=== PATIENT | male | born 1995 | race Caucasian/White ===

== ENCOUNTER 2024-12-24 18:30 | Emergency (ER) | payer SELFPAY ==
[~2024-12-24] VITALS: Ht 182.9 cm; Wt 93.0 kg
[2024-12-24 18:42] VITALS: TEMP 36.8; O2SAT 100
[2024-12-24 22:20] LABS: BASOPHILS % 0.6 % (0.0-2.0); EOSINOPHILS % 1.3 % (0.0-5.0); HEMATOCRIT. 42.2 % (42.0-52.0); HEMOGLOBIN. 14.2 g/dL (14.0-18.0); LYMPHOCYTES % 25.8 % (20.0-50.0); MEAN CORPUSCULAR HEMOGLOBIN 28.6 pg (28.0-32.0); MEAN CORPUSCULAR HGB CONC 33.7 g/dL (31.0-37.0); MEAN CORPUSCULAR VOLUME 84.9 fL (80.0-94.0); MEAN PLATELET VOLUME 7.8 fl (7.4-10.4); MONOCYTES % 5.7 % (2.0-8.0); NEUTROPHILS % 66.6 % (40.0-76.0); PLATELET 363 x1000/uL (130-400); RED BLOOD CELL COUNT 4.97 mill/uL (4.7-6.1); RED CELL DISTRIBUTION WIDTH 14.1 % (11.6-14.6); WHITE BLOOD COUNT 12.5 x1000/uL (4.5-11.0)
[2024-12-24 22:27] LABS: CHLORIDE 104 mEq/L (98-107); POTASSIUM 3.7 mEq/L (3.5-5.1); SODIUM 137 mEq/L (136-145)
[2024-12-24 22:28] LABS: CALCIUM 9.3 mg/dL (8.7-10.4); CARBON DIOXIDE 24 mEq/L (21-32)
[2024-12-24 22:32] LABS: INR 1.1; PROTHROMBIN TIME 11.8 sec (9.6-11.0)
[2024-12-24 22:33] LABS: CREATININE 0.8 mg/dL (0.6-1.3); GLUCOSE 88 mg/dL (70-105); UREA NITROGEN BLOOD 7 mg/dL (9-23)
[2024-12-24 22:35] LABS: ALANINE AMINOTRANSFERASE 11 IU/L (10-49); ALBUMIN 4.5 g/dL (3.2-4.8); ASPARTATE AMINOTRANSFERASE 13 IU/L (<34); BILIRUBIN DIRECT 0.2 mg/dL (<=3.0); BILIRUBIN TOTAL 0.7 mg/dL (0.1-1.0); PROTEIN TOTAL 8.7 g/dL (6.0-8.3)
[2024-12-25 00:07] VITALS: BP 125/71; PULSE 69; RESP 18; O2SAT 98
== END 2024-12-25 00:10 | disposition home or self-care (01) ==
LOC: ER 18:30
DX: K52.9 Noninfective gastroenteritis and colitis, unspecified (principal)
CPT/HCPCS: 36415; 80048; 80076; 85025; 93005; 99284

== ENCOUNTER 2024-12-25 14:42 | Emergency (ER) | payer MEDICAID ==
[~2024-12-25] VITALS: Ht 177.8 cm; Wt 100.0 kg
[2024-12-25 14:51] VITALS: O2SAT 100
[2024-12-25 19:17] LABS: BASOPHILS % 0.3 % (0.0-2.0); EOSINOPHILS % 0.4 % (0.0-5.0); HEMOGLOBIN. 14.4 g/dL (14.0-18.0); MEAN CORPUSCULAR HEMOGLOBIN 28.9 pg (28.0-32.0); MEAN CORPUSCULAR HGB CONC 33.6 g/dL (31.0-37.0); MEAN CORPUSCULAR VOLUME 86.1 fL (80.0-94.0); MONOCYTES % 5.2 % (2.0-8.0); NEUTROPHILS % 74.1 % (40.0-76.0); PLATELET 382 x1000/uL (130-400); RED CELL DISTRIBUTION WIDTH 13.8 % (11.6-14.6); WHITE BLOOD COUNT 12.7 x1000/uL (4.5-11.0)
[2024-12-25 19:37] LABS: CHLORIDE 100 mEq/L (98-107); POTASSIUM 3.9 mEq/L (3.5-5.1); SODIUM 134 mEq/L (136-145)
[2024-12-25 19:38] LABS: CARBON DIOXIDE 23 mEq/L (21-32)
[2024-12-25 19:39] LABS: CALCIUM 10.1 mg/dL (8.7-10.4)
[2024-12-25 19:43] LABS: CREATININE 0.7 mg/dL (0.6-1.3); GLUCOSE 74 mg/dL (70-105)
[2024-12-25 19:44] LABS: UREA NITROGEN BLOOD 9 mg/dL (9-23)
[2024-12-25 19:45] LABS: ALANINE AMINOTRANSFERASE 15 IU/L (10-49); ASPARTATE AMINOTRANSFERASE 16 IU/L (<34)
[2024-12-25 19:46] LABS: BILIRUBIN TOTAL 0.8 mg/dL (0.1-1.0); ETHANOL BLOOD < 10 mg/dL (<10); PROTEIN TOTAL 8.6 g/dL (6.0-8.3)
[2024-12-25 21:15] VITALS: BP 124/68; PULSE 83; RESP 16; TEMP 36.9; O2SAT 99
== END 2024-12-25 21:17 | disposition home or self-care (01) ==
LOC: ER 14:42
DX: A08.4 Viral intestinal infection, unspecified (principal)
CPT/HCPCS: 36415; 80053; 80320; 85025; 99283; G0480